=== PATIENT | female | born 1970 | race Caucasian/White ===

== ENCOUNTER 2021-02-28 15:02 | Emergency (ER) | payer SELFPAY | END 2021-02-28 17:45 | disposition left against medical advice (07) | PROVIDERS: Emergency Provider Emergency Medicine; PCP Hospitalist | DX: S29.9XXA Unspecified injury of thorax, initial encounter (principal); X58.XXXA Exposure to other specified factors, initial encounter; Y93.9 Activity, unspecified; Y92.9 Unspecified place or not applicable; Y99.9 Unspecified external cause status ==

== ENCOUNTER 2022-02-07 16:12 | Outpatient (REF) | payer OTHER, SELFPAY ==
--- NOTE | ~2022-02-07 | XR_ITS ---
EXAMINATION: XR CHEST 2 VIEW CLINICAL INFORMATION: Shortness of breath COMPARISON: None TECHNIQUE: PA and lateral views of the chest obtained. FINDINGS: The lungs are clear. There are no pleural effusions. The cardiomediastinal silhouette is normal. Degenerative and spondylotic changes are noted in the dorsal spine. XR/XR chest 2V IMPRESSION: No active cardiopulmonary disease.
== END 2022-02-07 16:13 | disposition home or self-care (01) ==
LOC: HO.HMGCX 16:12
PROVIDERS: Visit Provider Nurse Practitioner Acute Care
DX: R06.02 Shortness of breath (principal); R06.2 Wheezing
CPT/HCPCS: 71046

== ENCOUNTER 2023-08-03 17:06 | Emergency (ER) | payer OTHER, SELFPAY ==
[2023-08-03 17:24] VITALS: BP 118/76; PULSE 86; RESP 16; TEMP 36.4; O2SAT 97; BMI 42.0
--- NOTE | 2023-08-03 17:26 | ED_ITS ---
HPI - General Adult General Chief complaint: Nausea/Vomiting/Diarrhea Stated complaint: diarrhea, vomiting, passed out twice last night Time Seen by Provider: 08/04/23 01:58 Source: patient Mode of arrival: ambulatory Limitations: no limitations History of Present Illness HPI narrative: Patient works as a nurse in skilled nursing comes here with episode of watery diarrhea since started yesterday night with feeling dizziness lightheadedness history of similar episode 2 weeks ago patient also feel nauseated and vomited once patient passed out twice last night while in the bathroom was feeling lightheaded on standing no chest pain or palpitation were ordered day called 2 days had watery diarrhea no blood in the stool no fever no chills no use of any antibiotics no recent travel no other family member sick Related Data Home Medications Medication Instructions Recorded Confirmed bupropion HCl 300 mg 24 hr tablet, 300 mg PO DAILY 02/07/22 extended release escitalopram oxalate 20 mg tablet 20 mg PO DAILY 02/07/22 levothyroxine 175 mcg tablet 175 mcg PO DAILY 02/07/22 (Euthyrox) lisinopril 30 mg tablet 30 mg PO DAILY 02/07/22 metformin 500 mg tablet 500 mg PO BID 02/07/22 Previous Rx's Medication Instructions Recorded albuterol sulfate 90 mcg/actuation 2 inh inhalation Q4-6H PRN 02/07/22 breath activated powder inhaler shortness of breath or wheezing #1 ea montelukast 10 mg tablet 10 mg PO BEDTIME #5 tabs 02/07/22 prednisone 20 mg tablet 40 mg (2 x 20 mg) PO DAILY #6 tabs 02/07/22 loperamide 2 mg tablet (Imodium 2 mg PO Q6H PRN loose stool #10 08/04/23 A-D) tabs ondansetron 4 mg disintegrating 4 mg PO Q6-8H PRN nausea and 08/04/23 tablet vomiting #7 tabs Allergies Allergy/AdvReac Type Severity Reaction Status Date / Time psyllium [From Metamucil] Allergy Anaphylaxis Verified 08/03/23 17:24 Review of Systems 2 Review of Systems: Yes all other systems are reviewed and are negative [facility] Social History Social History Patient Tobacco Use Status: Former Tobacco user Smoked in Last 30 Days: No Use of substances other than those prescribed or required for medical reasons: No Advance Directives: No Advance Directives Information Provided: Yes Patient : No Physical Exam ED Vital Signs: Vital Signs - 24 hr 08/03/23 17:24 08/04/23 03:02 08/04/23 06:08 Temperature 97.6 F 97.5 F 98.2 F Pulse Rate 86 89 89 Respiratory Rate 16 16 Blood Pressure 118/76 134/79 116/83 Pulse Oximetry 97 99 97 Oxygen Delivery Method Room Air Room Air Room Air BMI result Body Mass Index 42.0 Appearance: Alert. Oriented X3. No acute distress. Looks sick Eyes: PERRLA, No Nystagmus ENT: Pharynx normal. Oral Mucosa moist Neck: Normal inspection. Neck supple. CVS: Normal heart rate and rhythm. Pulses normal. Respiratory: No respiratory distress. Equal air entry bilateral, no wheezing/rales/rhonchi Abdomen: Soft and nontender. Bowel sounds are present, no mass palpable, no CVA tenderness Skin: Skin warm and dry. Normal skin color. Normal skin turgor. Extremities: No lower extremity edema. No calf tenderness Neuro: Oriented X 3. No motor deficit. No sensory deficit.No cerebellar signs , cranial nerves II-XII intact Course Course Course Narrative: RME performed by Ciara Wakefield PA-C. Patient is a 53 year old assigned female at presenting to the emergency department with nausea, vomiting, and diarrhea. Detailed physical exam and review of systems are deferred to the primary care pediatrician. Labs and swabs ordered. Patient placed back in the waiting room pending room availability and results. Medications Administered Discontinued Medications Generic Name Dose Route Start Last Admin Trade Name Freq PRN Reason Stop Dose Admin Sodium Chloride 1,000 mls @ 999 mls/hr 08/04/23 02:10 08/04/23 04:30 Ns IV 08/04/23 03:10 Infused .Q1H1M ONE Infusion Loperamide HCl 2 mg 08/04/23 02:10 08/04/23 03:26 Loperamide Hcl 2 Mg Capsule PO 08/04/23 02:11 2 mg ONCE ONE Administration Ondansetron HCl 4 mg 08/04/23 02:10 08/04/23 03:25 Ondansetron Hcl 4 Mg/2 Ml Vial IVPUSH 08/04/23 02:11 4 mg ONCE ONE Administration Medical Decision Making Medical Decision Making [facility] Narrative: She will gastroenteritis with volume loss with vasovagal syncope episode feeling much better after IV hydration in the ER ambulatory in his steady gait orthostatics have improved will discharge patient home advised to follow-up with PCP will give prescription of Imodium and Zofran Lab Data [facility] Lab Attestation statement: I reviewed the patient's lab results. 08/03/23 18:23 08/03/23 18:23 Labs: Lab Results 08/03/23 08/04/23 Range/Units 18:23 02:56 WBC 12.3 H (4.8-10.8) X10*3/uL RBC 5.05 (4.20-5.50) X10*6/uL Hgb 14.3 (12.0-16.0) g/dl Hct 43.5 (37.0-47.0) % MCV 86.1 (80.0-98.0) fL MCH 28.3 (27.0-33.0) pg MCHC 32.9 (31.0-35.0) g/dl RDW 12.4 (11.0-16.0) % Plt Count 369 (160-400) X10*3/uL MPV 8.6 L (9.4-12.3) fL Immature Gran % (Auto) 0.4 (0.0-0.4) % Neut % (Auto) 61.3 (45-73) % Lymph % (Auto) 28.6 (20-40) % [place] % (Auto) 7.3 (2-11) % Eos % (Auto) 2.1 (0-4) % Baso % (Auto) 0.3 (0-2) % Lymph # (Auto) 3.5 (1.2-4.9) X10*3/uL [place] # (Auto) 0.9 (0.1-1.2) X10*3/uL Eos # (Auto) 0.3 (0.0-0.4) X10*3/uL Baso # (Auto) 0.0 (0.0-0.2) X10*3/uL Abs Immat Gran (auto) 0.05 H (0.00-0.03) X10*3/uL Absolute Neuts (auto) 7.5 (2.0-8.3) x10*3/uL Absolute Nucleated RBC 0.000 (0.0-0.012) X10*3/uL Nucleated RBC % (auto) 0.0 (0.0-0.2) /100WBC Sodium 136 (135-145) mmol/L Potassium 4.0 (3.3-5.1) mmol/L Chloride 101 (96-108) mmol/L Carbon Dioxide 28 (22-29) mmol/L Anion Gap 11 L (12-20) BUN 15 (9-16) mg/dL Creatinine 0.72 (0.5-1.4) mg/dL Estim Creat Clear Calc 107.4 Estimated GFR > 60 POC Glucose 123 H (60-115) mg/dL Random Glucose 96 (60-115) mg/dL Calcium 9.7 (8.4-10.2) mg/dL Magnesium 1.8 (1.6-2.6) mg/dL Total Bilirubin 0.5 (0.0-1.0) mg/dL AST 28 (5-31) U/L ALT 44 H (0-31) U/L Alkaline Phosphatase 91 (39-117) U/L Troponin I High Sens < 2.7 (<3.5-17.0) ng/L Total Protein 7.9 (6.5-8.0) g/dL Albumin 4.5 (3.5-5.0) g/dL Lipase 50 (8-78) U/L TSH 0.27 L (0.32-4.0) uIU/mL Free T4 1.20 (0.71-1.85) ng/dL Urine Color Yellow Urine Appearance Clear Urine pH 5.5 (5.0-9.0) Ur Specific [place] 1.015 (1.005-1.025) Urine Protein Negative (Neg-Trace) mg/dL Urine Glucose (UA) Negative (Negative) mg/dL Urine Ketones Negative (Negative) mg/dL Urine Blood Negative (Negative) Urine Nitrite Negative (Negative) Ur Leukocyte Esterase Small (1+) H (Negative) Urine RBC 0-2 (0-2) /HPF Urine WBC 0-5 (0-5) /HPF Ur Squamous Epith Cells 3-5 (0-2) /HPF Urine Bacteria None Seen (None Seen) Hyaline Casts 0-2 (0-2) /LPF COVID-19 ([facility]) Negative (Negative) COVID-19 Clin Com See Note Influenza Type A ([facility]) Negative (Negative) Influenza Type B ([facility]) Negative (Negative) Influenza A & B Note See Note Discharge Plan Discharge Clinical Impression: Gastroenteritis Patient Disposition: Home, Self-Care Instructions: Gastroenteritis (ED) Additional Instructions: Drink plenty of fluids Med for nausea as prescribed Imodium 1 tablet only if severe diarrhea , not more than 3 tab in 24 hours Prescriptions: New loperamide [Imodium A-D] 2 mg tablet 2 mg PO Q6H PRN (Reason: loose stool) Qty: 10 0RF ondansetron 4 mg tablet,disintegrating 4 mg PO Q6-8H PRN (Reason: nausea and vomiting) Qty: 7 0RF No Action levothyroxine [Euthyrox] 175 mcg tablet 175 mcg PO DAILY bupropion HCl 300 mg tablet extended release 24 hr 300 mg PO DAILY escitalopram oxalate 20 mg tablet 20 mg PO DAILY lisinopril 30 mg tablet 30 mg PO DAILY metformin 500 mg tablet 500 mg PO BID albuterol sulfate 90 mcg/actuation aerosol powdr breath activated 2 inh inhalation Q4-6H PRN (Reason: shortness of breath or wheezing) Qty: 1 0RF prednisone 20 mg tablet 40 mg PO DAILY Qty: 6 0RF Rx Instructions: tapered dose, take 2 tabs po x 2 days, followed by 1 tablet qd x 2 days then discontinue montelukast 10 mg tablet 10 mg PO BEDTIME Qty: 5 0RF Stand Alone Forms: Work/School Release Interventions: ED Discharge Assessment Last Done: 08/04/23 06:34 Discharge Date/Time: 08/04/23 06:53
--- NOTE | 2023-08-03 17:27 | ECG_ITS ---
Test Reason : NAUSEA Blood Pressure : / mmHG Vent. Rate : 089 BPM Atrial Rate : 089 BPM P-R Int : 160 ms QRS Dur : 090 ms QT Int : 366 ms P-R-T Axes : 053 -24 050 degrees QTc Int : 445 ms Sinus rhythm with frequent Premature ventricular complexes Moderate voltage criteria for LVH, may be normal variant ( R in aVL , [place] product ) Possible Anterior infarct , age undetermined Abnormal ECG No previous ECGs available Referred By: Ciara Wakefield Electronically Signed By:Terrence Ferguson
[2023-08-03 18:29] LABS: MANUAL DIFF FLAG NO
[2023-08-03 18:33] LABS: Appearance Urine Clear; Color Urine Yellow; Glucose Urine UA Negative (Negative); Leukocyte Esterase Urine Small (1+) (Negative); Nitrite Urine Negative (Negative); PH 5.5 (5.0-9.0); Specific Gravity - Urine 1.015 (1.005-1.025); UMIC TRIGGER UACC YES; Urine Blood Negative (Negative); Urine Ketones Negative (Negative); Urine Protein Negative (Neg-Trace)
[2023-08-03 18:35] LABS: Basophils Percent Auto 0.3 % (0-2); Eosinophils Absolute Auto 0.3 X10*3/uL (0.0-0.4); Eosinophils Percent Auto 2.1 % (0-4); Hematocrit 43.5 % (37.0-47.0); Hemoglobin 14.3 g/dl (12.0-16.0); Imm Gran Abs Auto 0.05 X10*3/uL (0.00-0.03); Imm Gran Pct Auto 0.4 % (0.0-0.4); Lymphocytes Absolute Auto 3.5 X10*3/uL (1.2-4.9); Lymphocytes Percent Auto 28.6 % (20-40); Mean Corpuscular HGB Conc 32.9 g/dl (31.0-35.0); Mean Corpuscular Hemoglobin 28.3 pg (27.0-33.0); Mean Corpuscular Volume 86.1 fL (80.0-98.0); Mean Platelet Volume 8.6 fL (9.4-12.3); Monocytes Absolute Auto 0.9 X10*3/uL (0.1-1.2); Monocytes Percent Auto 7.3 % (2-11); Neutrophils Absolute Auto 7.5 x10*3/uL (2.0-8.3); Neutrophils Percent Auto 61.3 % (45-73); Platelet Count 369 X10*3/uL (160-400); Red Blood Count 5.05 X10*6/uL (4.20-5.50); Red Cell Distribution Width 12.4 % (11.0-16.0); White Blood Count 12.3 X10*3/uL (4.8-10.8)
[2023-08-03 18:42] LABS: Bacteria Urine None Seen (None Seen); Hyaline Casts Urine 0-2 /LPF (0-2); RBC Urine 0-2 /HPF (0-2); UACC Culture Trigger YES; WBC Urine 0-5 /HPF (0-5)
[2023-08-03 18:49] LABS: COVID-19 Test Negative (Negative); IDNOW Serial# 08D9AD1C
[2023-08-03 18:50] LABS: IDNOW Serial# 152EDE1D; Influenza A Negative (Negative); Influenza B2 Negative (Negative)
[2023-08-03 18:52] LABS: Alanine Aminotransferase 44 U/L (0-31); Albumin Level 4.5 g/dL (3.5-5.0); Alkaline Phosphatase 91 U/L (39-117); Anion Gap 11 (12-20); Aspartate Amino Transferase 28 U/L (5-31); Bilirubin Total 0.5 mg/dL (0.0-1.0); Blood Urea Nitrogen 15 mg/dL (9-16); Calcium 9.7 mg/dL (8.4-10.2); Carbon Dioxide 28 mmol/L (22-29); Chloride 101 mmol/L (96-108); Creatinine Clr Calc Pharmacy 107.4; Estimated Glomerular Filt Rate > 60; Glucose Random 96 mg/dL (60-115); Lipase 50 U/L (8-78); Magnesium 1.8 mg/dL (1.6-2.6); Sodium 136 mmol/L (135-145); Total Protein 7.9 g/dL (6.5-8.0)
[2023-08-03 18:53] LABS: Troponin-I High Sensitivity < 2.7 ng/L (<3.5-17.0)
[2023-08-03 19:07] LABS: TSH reflex Free T4 0.27 uIU/mL (0.32-4.0)
[2023-08-04 03:00] LABS: Glucose, Whole Blood 123 mg/dL (60-115)
[2023-08-04 03:02] VITALS: BP 134/79; PULSE 89; TEMP 36.4; O2SAT 99
[2023-08-04] MEDS: ondansetron HCL 4 MG/2 ML VIAL IVPUSH (03:25)
[2023-08-04] MEDS: Loperamide HCl 2 MG CAPSULE PO (03:26)
[2023-08-04] MEDS: 0.9 % Sodium Chloride 1,000 ML 999 ML IV (03:26)
[2023-08-04 06:08] VITALS: BP 116/83; PULSE 89; RESP 16; TEMP 36.8; O2SAT 97
--- NOTE | 2023-08-04 06:12 | PC.NURSE ---
Patient given apple juice and crackers for PO challenge, tolerated well, no nausea/vomiting.
--- NOTE | 2023-08-04 06:20 | PC.NURSE ---
Patient given cranberry juice and saltines crackers for PO challenge, patient tolerated well, no nausea, vomiting.
== END 2023-08-04 06:53 | disposition home or self-care (01) ==
PROVIDERS: Physician Assistant Medical; Emergency Provider Internal Medicine
DX: K52.9 Noninfective gastroenteritis and colitis, unspecified (principal); Z11.52 Encounter for screening for COVID-19; R11.2 Nausea with vomiting, unspecified; R73.9 Hyperglycemia, unspecified; Z79.84 Long term (current) use of oral hypoglycemic drugs
CPT/HCPCS: 80053; 81001; 82947; 83690; 83735; 84439; 84443; 84484; 85025; 87086; 87502; 87635; 93005; 96361; 96374; 99284; 99285; J2405

== ENCOUNTER → 2023-08-03 17:27 | Outpatient (BNV) | payer OTHER, SELFPAY | PROVIDERS: Emergency Provider Internal Medicine; Visit Provider Internal Medicine Cardiovascular Disease | DX: I49.3 Ventricular premature depolarization (principal) | CPT/HCPCS: 93010 ==